=== PATIENT | male | born 2000 | race Caucasian/White ===

== ENCOUNTER 2020-03-24 01:18 | Emergency (ER) | payer BC ==
[~2020-03-24] VITALS: Ht 167.6 cm; Wt 56.7 kg
[2020-03-24 01:28] VITALS: BP_SYST 136
[2020-03-24] MEDS ORDERED: LIDOCAINE 1%, 20 ML MDV 20 ML ONE (02:05)
[2020-03-24 02:27] VITALS: BP_SYST 129
== END 2020-03-24 02:22 | disposition home or self-care (01) ==
LOC: SED 01:18
DX: S01.111A Laceration without foreign body of right eyelid and periocular area, initial encounter (principal); F10.129 Alcohol abuse with intoxication, unspecified; Y90.9 Presence of alcohol in blood, level not specified; W45.8XXA Other foreign body or object entering through skin, initial encounter; Y93.89 Activity, other specified; Y92.89 Other specified places as the place of occurrence of the external cause; Y99.8 Other external cause status
CPT/HCPCS: 12011; 99283; J2001